=== PATIENT | female | born 1945 | race Caucasian/White ===

== ENCOUNTER 2019-07-03 12:51 | Outpatient (CLI) | payer MEDICARE, BC ==
[~2019-07-03] VITALS: Ht 165.1 cm; Wt 67.3 kg
[2019-07-03 13:09] VITALS: BP 141/87; Ht 165.1 cm; Wt 67.3 kg
--- NOTE | 2019-07-03 13:32 | NUR ---
NO ADVERSE REACTIONS NOTED. PT LEFT UNIT AMBULATING AT [id number]
== END 2019-07-03 13:32 | disposition home or self-care (01) ==
LOC: D.OPS 12:51
PROVIDERS: ATTEND Family Medicine
DX: M81.0 Age-related osteoporosis without current pathological fracture (principal)

== ENCOUNTER → 2020-02-28 12:52 | Outpatient (CLI) | payer MEDICARE, BC ==
[~2020-02-28] VITALS: Ht 165.1 cm; Wt 76.4 kg
[2020-02-28 13:24] VITALS: BP 139/91; Ht 165.1 cm; Wt 76.4 kg
== END | disposition home or self-care (01) ==
LOC: D.OPS 01-03 13:00
PROVIDERS: ATTEND Family Medicine
DX: M81.0 Age-related osteoporosis without current pathological fracture (principal)

== ENCOUNTER 2020-05-18 14:42 | Emergency (ER) | payer MEDICARE, BC ==
[~2020-05-18] VITALS: Ht 165.1 cm; Wt 65.9 kg
[2020-05-18 14:54] VITALS: Ht 165.1 cm; Wt 65.9 kg
[2020-05-18] MEDS ORDERED: NAPROSYN500 MG PO (20:31)
[2020-05-18 20:46] VITALS: BP 132/88
== END 2020-05-18 20:47 | disposition home or self-care (01) ==
LOC: D.ER 14:42
DX: S93.402A Sprain of unspecified ligament of left ankle, initial encounter (principal); M25.562 Pain in left knee; W19.XXXA Unspecified fall, initial encounter; Y93.9 Activity, unspecified; Y92.9 Unspecified place or not applicable; I10 Essential (primary) hypertension; M79.602 Pain in left arm

== ENCOUNTER 2021-03-10 11:20 | Outpatient (CLI) | payer MEDICARE, BC ==
[~2021-03-10] VITALS: Ht 162.6 cm; Wt 68.2 kg
[~2021-03-10 11:20] MED LIST: NAPROSYN500 MG PO
[2021-03-10 12:13] VITALS: Ht 162.6 cm; Wt 68.2 kg
== END 2021-03-10 12:28 | disposition home or self-care (01) ==
LOC: D.OPS 11:20
PROVIDERS: ATTEND Family Medicine
DX: M81.0 Age-related osteoporosis without current pathological fracture (principal)